=== PATIENT | female | born 1955 ===

== ENCOUNTER 2024-05-19 06:11 | Day surgery (SDC) | payer MEDICARE, OTHER ==
[~2024-05-19] VITALS: Ht 160 cm; Wt 71.9 kg
[2024-05-19] MEDS ORDERED: TRAZ50 PO (06:56)
[2024-05-19] MEDS ORDERED: FentaNYL Citrate 50 MCG/ML 2 ML Injection ONE ×2 (06:56→08:12)
[2024-05-19] MEDS ORDERED: propofoL 60 ML IV ONE (06:56)
[2024-05-19] MEDS ORDERED: Sugammadex Sodium 200 MG/2ML SDV (100 MG/ML) ONE (06:56)
[2024-05-19] MEDS ORDERED: FERSU300 PO (06:57)
[2024-05-19] MEDS ORDERED: OMEP20ER PO (06:57)
[2024-05-19] MEDS ORDERED: ZEPBOUND7.5 MG/0.5 SQ (06:57)
[2024-05-19] MEDS ORDERED: Lactated Ringer's 1,000 ML IV ONE (07:05)
[2024-05-19] MEDS ORDERED: Lidocaine 1%-Epineph 1:200000 30 ML SDV INJ ONE (07:53)
[2024-05-19 09:36] VITALS: BP 127/88
== END 2024-05-19 10:14 | disposition home or self-care (01) ==
LOC: ORSCSDS 06:11
PROVIDERS: Otolaryngology
PROC: 0GTP0ZZ Resection of Left Inferior Parathyroid Gland, Open Approach (ICD-10-PCS; principal; 2024-05-19 07:30)
DX: E21.0 Primary hyperparathyroidism (principal); D35.1 Benign neoplasm of parathyroid gland; K21.9 Gastro-esophageal reflux disease without esophagitis; Z79.899 Other long term (current) drug therapy
CPT/HCPCS: 83970; 88305; 88331; J2704; J3010; J7120